=== PATIENT | male | born 1955 | race Caucasian/White ===

== ENCOUNTER 2017-12-20 12:05 | Outpatient (CLI) ==
--- NOTE | 2017-12-20 14:10 | DI ---
EXAM: Three views of the right knee. History: Right knee pain. Findings: No acute fracture or dislocation. Mild to moderate tricompartmental joint space narrowing with marginal sclerosis and osteophytes. No radiopaque foreign bodies. Impression: 1. No acute osseous abnormality. 2. Mild to moderate tricompartmental osteoarthritis.
--- NOTE | 2017-12-20 14:12 | DI ---
EXAM: Single view of the pelvis and two views of bilateral hips. History: Bilateral hip pain. Findings: No acute fracture or dislocation. 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 Mild to moderate narrowing of the left hip joint and mild narrowing of the right hip joint with small ost eophytes. Impression: 1. No acute osseous abnormality. 2. 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 3. Mild to moderate arthritis of the left hip joint and mild arthritis of the right hip joint.
--- NOTE | 2017-12-20 14:13 | DI ---
EXAM: Three views of the left knee. History: Left knee pain. Findings: No acute fracture or dislocation. Superior patellar enthesiopathy. Mild to moderate tric ompartmental joint space narrowing with marginal sclerosis and osteophyte formation and worse in the patellofemoral compartment. Seen on the lateral view there are a few well corticated ossific densiti es projecting over the anterior joint space, concerning for intra-articular loose bodies. Impression: 1. No acute osseous abnormality. 2. Mild to moderate tricompartmental osteoarthritis. 3. Intra-articular loose bodies
== END 2017-12-20 12:06 | disposition home or self-care (01) ==
LOC: RAD 12:05
PROVIDERS: ATTEND Family Medicine
DX: M19.91 Primary osteoarthritis, unspecified site (principal); M25.562 Pain in left knee; M25.561 Pain in right knee; M25.552 Pain in left hip; M25.551 Pain in right hip